=== PATIENT | female | born 2000 | race Caucasian/White ===

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

== ENCOUNTER 2020-12-26 08:12 | Emergency (ER) | payer OTHER ==
[2020-12-26 08:27] VITALS: BP 112/74; PULSE 89; TEMP 98.3; BMI 41.8
[2020-12-26] MEDS ORDERED: ONDANSETRON 4 MG/2 ML VIAL IVPUSH ONE (08:39)
[2020-12-26] MEDS ORDERED: SODIUM CHLORIDE 1,000 ML IV STA ×3 (08:39→10:30)
[2020-12-26] MEDS ORDERED: FAMOTIDINE 20 MG/50 ML IVPB 20 MG/50 ML MG IVPB ONE ×2 (08:40→08:57)
[2020-12-26] MEDS ORDERED: ONDANSETRON 4 MG/2 ML VIAL ONE (08:57)
[2020-12-26 09:17] LABS: BASO % 0.4 % (0-2.0); EOS % 0.4 % (0-4.5); HEMATOCRIT 41.6 % (32.4-45.2); LYMPH % 19.4 % (8-40); MCH 29.7 pg (25.7-33.7); MCHC 33.7 g/dl (32.0-36.0); MEAN PLT VOLUME 9.2 fl (7.5-11.1); NEUT % 73.8 % (42.8-82.8); PLATELET COUNT 259 10^3/uL (134-434); RBC 4.72 M/mm3 (3.60-5.2); RDW 13.2 % (11.6-15.6)
[2020-12-26 09:24] LABS: EPI CELLS 33 /uL (0-25.1); HYALINE CASTS 11 /uL (0-3.1); PH,URINE 5.5 (5.0-8.0); URINE APPEARANCE TURBID; URINE BACTERIA 232 /uL (0-1359); URINE BILIRUBIN 2+ (NEGATIVE); URINE COLOR DK YELLOW; URINE GLUCOSE (UA) NEGATIVE (NEGATIVE); URINE KETONE 2+ (NEGATIVE); URINE LEUK ESTERASE TRACE (NEGATIVE); URINE NITRITE NEGATIVE (NEGATIVE); URINE PROTEIN 1+ (NEGATIVE); URINE RBC 1 /uL (0-23.9); URINE WBC 35 /uL (0-25.8)
[2020-12-26 09:27] LABS: ALBUMIN 3.9 g/dl (3.4-5.0); BLOOD UREA NITROGEN 5.8 mg/dL (7-18); CALCIUM 9.4 mg/dL (8.5-10.1)
[2020-12-26 09:30] LABS: CREATININE 0.7 mg/dL (0.55-1.3)
[2020-12-26 09:32] LABS: BILIRUBIN,TOTAL 0.7 mg/dL (0.2-1); TOT PROT 7.8 g/dl (6.4-8.2)
[2020-12-26] MEDS ORDERED: METOCLOPRAMIDE HCL INJECTION 10 MG/2 ML VIAL IVPB ONE (10:30)
[2020-12-26] MEDS ORDERED: METOCLOPRAMIDE HCL INJECTION 10 MG/2 ML VIAL ONE (10:34)
== END 2020-12-26 12:33 | disposition home or self-care (01) ==
LOC: JER 08:12
PROC: 3E033GC Introduction of Other Therapeutic Substance into Peripheral Vein, Percutaneous Approach (ICD-10-PCS; principal; 2020-12-26)
PROC: 3E033GC Introduction of Other Therapeutic Substance into Peripheral Vein, Percutaneous Approach (ICD-10-PCS; 2020-12-26)
PROC: 3E033GC Introduction of Other Therapeutic Substance into Peripheral Vein, Percutaneous Approach (ICD-10-PCS; 2020-12-26)
PROC: 3E0337Z Introduction of Electrolytic and Water Balance Substance into Peripheral Vein, Percutaneous Approach (ICD-10-PCS; 2020-12-26)
DX: O21.9 Vomiting of pregnancy, unspecified (principal); Z3A.01 Less than 8 weeks gestation of pregnancy
CPT/HCPCS: 36415; 80053; 81003; 84702; 85025; 86850; 86900; 86901; 87086; 99284-25

== ENCOUNTER 2021-01-06 15:17 | Emergency (ER) | payer OTHER ==
[2021-01-06 15:25] VITALS: BP 136/86; PULSE 82; TEMP 98.7; BMI 39.4
[2021-01-06] MEDS ORDERED: ONDANSETRON 4 MG/2 ML VIAL IVPUSH ONE (16:48)
[2021-01-06] MEDS ORDERED: SODIUM CHLORIDE 0.9% 500 ML INFUS.BAG IV ONE ×2 (16:48→16:49)
[2021-01-06] MEDS ORDERED: ONDANSETRON 4 MG/2 ML VIAL ONE (17:17)
[2021-01-06 17:30] LABS: BASO % 0.5 % (0-2.0); EOS % 0.5 % (0-4.5); HEMATOCRIT 42.2 % (32.4-45.2); HEMOGLOBIN 14.2 GM/dL (10.7-15.3); LYMPH % 18.4 % (8-40); MCH 29.1 pg (25.7-33.7); MCHC 33.7 g/dl (32.0-36.0); MEAN CELL VOLUME 86.4 fl (80-96); MEAN PLT VOLUME 9.2 fl (7.5-11.1); MONO % 5.6 % (3.8-10.2); PLATELET COUNT 253 10^3/uL (134-434); RBC 4.89 M/mm3 (3.60-5.2); RDW 13.1 % (11.6-15.6); WHITE BLOOD COUNT 11.2 K/mm3 (4.0-10.0)
[2021-01-06 18:22] LABS: ALBUMIN 3.9 g/dl (3.4-5.0); BILIRUBIN,TOTAL 0.8 mg/dL (0.2-1); CALCIUM 9.5 mg/dL (8.5-10.1); CREATININE 0.6 mg/dL (0.55-1.3); TOT PROT 8.2 g/dl (6.4-8.2)
[2021-01-06 19:28] LABS: EPI CELLS 35 /uL (0-25.1); HYALINE CASTS 13 /uL (0-3.1); PH,URINE 5.5 (5.0-8.0); URINE APPEARANCE CLOUDY; URINE BILIRUBIN 1+ (NEGATIVE); URINE COLOR DK YELLOW; URINE GLUCOSE (UA) NEGATIVE (NEGATIVE); URINE KETONE 4+ (NEGATIVE); URINE LEUK ESTERASE 1+ (NEGATIVE); URINE NITRITE POSITIVE (NEGATIVE); URINE PROTEIN TRACE (NEGATIVE); URINE UROBILINOGEN 4.0 E.U/dl mg/dL (0.2-1.0); URINE WBC 64 /uL (0-25.8)
[2021-01-06 23:25] LABS: URINE BACTERIA 84 /uL (0-1359); URINE RBC 56 /uL (0-23.9)
== END 2021-01-06 19:08 | disposition home or self-care (01) ==
LOC: JER 15:17
PROC: 3E033GC Introduction of Other Therapeutic Substance into Peripheral Vein, Percutaneous Approach (ICD-10-PCS; principal; 2021-01-06)
DX: O21.0 Mild hyperemesis gravidarum (principal); Z3A.08 8 weeks gestation of pregnancy
CPT/HCPCS: 36415; 80053; 81003; 85025; 87086; 99284-25

== ENCOUNTER 2021-01-10 07:25 | Emergency (ER) | payer OTHER ==
[2021-01-10 07:39] VITALS: TEMP 98; BMI 39.4
[2021-01-10] MEDS ORDERED: SODIUM CHLORIDE 1,000 ML IV STA (07:55)
[2021-01-10] MEDS ORDERED: ONDANSETRON 4 MG/2 ML VIAL IVPUSH STA (08:07)
[2021-01-10] MEDS ORDERED: ONDANSETRON 4 MG/2 ML VIAL ONE (08:17)
[2021-01-10] MEDS ORDERED: ONDANSETRON 4 MG/2 ML VIAL IVPUSH ONE (08:30)
[2021-01-10 08:52] LABS: BASO % 0.3 % (0-2.0); EOS % 0.1 % (0-4.5); HEMOGLOBIN 14.2 GM/dL (10.7-15.3); LYMPH % 9.8 % (8-40); MCH 29.2 pg (25.7-33.7); MCHC 33.9 g/dl (32.0-36.0); MEAN PLT VOLUME 9.3 fl (7.5-11.1); MONO % 5.2 % (3.8-10.2); NEUT % 84.6 % (42.8-82.8); PLATELET COUNT 278 10^3/uL (134-434); RBC 4.88 M/mm3 (3.60-5.2); WHITE BLOOD COUNT 12.4 K/mm3 (4.0-10.0)
[2021-01-10 08:57] LABS: BLOOD UREA NITROGEN 8.5 mg/dL (7-18); CALCIUM 9.4 mg/dL (8.5-10.1)
[2021-01-10 08:58] LABS: ALBUMIN 3.6 g/dl (3.4-5.0)
[2021-01-10 09:00] LABS: CREATININE 0.5 mg/dL (0.55-1.3)
[2021-01-10 09:02] LABS: BILIRUBIN,TOTAL 1.6 mg/dL (0.2-1); TOT PROT 8.3 g/dl (6.4-8.2)
[2021-01-10] MEDS ORDERED: METOCLOPRAMIDE HCL INJECTION 10 MG/2 ML VIAL IVPB ONE (09:26)
[2021-01-10] MEDS ORDERED: DEXTROSE 5%-LACTATED RINGERS 1,000 ML IV SCH (09:30)
[2021-01-10] MEDS ORDERED: METOCLOPRAMIDE HCL INJECTION 10 MG/2 ML VIAL ONE (09:38)
[2021-01-10] MEDS ORDERED: PYRIDOXINE HCL 100 MG/1 ML VIAL IM SCH (10:00)
[2021-01-10 11:15] VITALS: BP 129/75; PULSE 88
== END 2021-01-10 11:15 | disposition home or self-care (01) ==
LOC: JER 07:25
PROC: 3E033NZ Introduction of Analgesics, Hypnotics, Sedatives into Peripheral Vein, Percutaneous Approach (ICD-10-PCS; principal; 2021-01-10)
PROC: 3E0337Z Introduction of Electrolytic and Water Balance Substance into Peripheral Vein, Percutaneous Approach (ICD-10-PCS; 2021-01-10)
PROC: 3E033GC Introduction of Other Therapeutic Substance into Peripheral Vein, Percutaneous Approach (ICD-10-PCS; 2021-01-10)
PROC: 3E033GC Introduction of Other Therapeutic Substance into Peripheral Vein, Percutaneous Approach (ICD-10-PCS; 2021-01-10)
DX: R11.2 Nausea with vomiting, unspecified (principal)
CPT/HCPCS: 36415; 76801-TC; 80053; 83690; 84702; 85025; 96361; 96374; 96375; 99284-25